=== PATIENT | female | born 1980 | race Caucasian/White ===

== ENCOUNTER 2018-07-01 07:48 | Inpatient (IN) | payer BC ==
[~2018-07-01] VITALS: Ht 162.6 cm; Wt 71.2 kg
--- NOTE | ~2018-07-01 | PROC ---
[address] [address] PROCEDURE REPORT Name: ALCON LOPEZ Room: [address] IN M.R.#: [id number] Admission: 07/01/18 Attend Phys: Ezio Rocha Discharge: Date of : 82 Report #: [id number] THIS REPORT FOR: //name// For GI report, please see the Provation report in Perceptive 7. By: 1450Medical Records Staff [facility]
[~2018-07-01 07:48] MED LIST: CELEXA10 MG PO; CLARITIN D PO; DIFLUCAN200 MG PO; HYDROCODONE-AP1 EAC6 PO; MACROBID 100 M100 M2 PO
[2018-07-01 08:00] VITALS: BP 105/69
[2018-07-01] MEDS ORDERED: OXYBUTYNIN 5 MG5 M2 PO (08:18)
[2018-07-01] MEDS ORDERED: ELMIRON 100 MG100 M1 PO (08:18)
[2018-07-01 08:36] LABS: ABSOLUTE EOSINOPHILS 0.1 thou/uL (0.0-0.7); ABSOLUTE LYMPHOCYTES 1.2 thou/uL (0.8-5.3); ABSOLUTE MONOCYTES 0.3 thou/uL (0.0-1.2); ABSOLUTE NEUTROPHILS 2.6 thou/uL (1.6-8.1); BASOPHILS 0.8 %; EOSINOPHILS 1.8 %; HEMATOCRIT 35.5 % (37.0-47.0); HEMOGLOBIN 12.2 gm/dL (12.0-15.0); LYMPHOCYTES 27.8 %; MCH 29.2 pg (26.0-34.0); MCHC 34.3 g/dL (28.0-37.0); MCV 84.9 fL (80.0-100.0); MONOCYTES 7.8 %; MPV 8.6 fl. (7.2-11.1); NUCLEATED RBCS 0 /100WBC; PLATELET COUNT* 184 thou/uL (150-400); POLYS 61.8 %; RBC 4.19 mil/uL (4.20-5.00); RDW-CV 13.7 % (10.5-14.5); WBC 4.2 thou/uL (4.0-11.0)
[2018-07-01 08:52] LABS: ANION GAP 8 mmol/L (7-16); BUN 26 mg/dL (7-18); CALCIUM 8.9 mg/dL (8.5-10.1); CHLORIDE 102 mmol/L (98-107); CO2 28 mmol/L (21-32); CREATININE 0.9 mg/dL (0.6-1.3); GLUCOSE 95 mg/dL (70-99); POTASSIUM 3.7 mmol/L (3.5-5.1); SODIUM 138 mmol/L (136-145)
[2018-07-01 08:57] LABS: ALBUMIN 3.6 g/dL (3.4-5.0); ALKALINE PHOSPHATASE 54 U/L (46-116); LIPASE 134 U/L (73-393); SGOT 19 U/L (15-37); SGPT 21 U/L (30-65); TOTAL BILIRUBIN 0.3 mg/dL (<0.1-1.0); TROPONIN-I LEVEL <0.06 ng/mL (<0.06)
--- NOTE | 2018-07-01 09:42 | NUR ---
CT compleated patient returned to ED and conectected to moniter. IV fluids empty left disconected
[2018-07-01 10:24] LABS: URINE BILIRUBIN NEGATIVE (Negative); URINE BLOOD NEGATIVE (Negative); URINE CLARITY CLEAR; URINE COLOR YELLOW; URINE GLUCOSE-RANDOM NEGATIVE (Negative); URINE KETONES NEGATIVE (Negative); URINE LEUKOCYTES-REFLEX NEGATIVE (Negative); URINE NITRITE-REFLEX NEGATIVE (Negative); URINE PROTEIN NEGATIVE (Negative); URINE UROBILINOGEN 0.2 E.U./dl (0.2-1.0)
[2018-07-01 12:12] VITALS: BP 88/47
[2018-07-01 12:20] VITALS: BP 90/58
--- NOTE | 2018-07-01 13:06 | NUR ---
RECEIVED REPORT FORM AMPARO IN ED AND ASSUMED CARE OF PT @ 2754.PT IS A/O X4,BP LOW @ 90/58.ASSESSMENT CHARTED.IV PATENT WITH IVF INFUSING PER ORDERS.PT IS CALM AND COOPERATIVE WITH NO C/O PAIN AT TIME OF ASSESSMENT.NPO STATUS FOR GI CONSULT.PT IS UP WITH SBA TO BATHROOM FOR DIZZINESS.PT LEFT RESTING IN BED WITH CALL LIGHT AND FALL PRECAUTIONS IN PLACE.FAMILY AT BEDSIDE.WILL CONTINUE TO MONITOR.
[2018-07-01 16:00] VITALS: BP 90/57
--- NOTE | 2018-07-01 17:34 | EKG ---
[place] [address] ELECTROCARDIOGRAM REPORT Name: ALCON LOPEZ Room: [address] ADM IN M.R.#: [id number] Admission: 07/01/18 Attend Phys: Ezio Rocha Discharge: Date of : 82 Report #: [id number] THIS REPORT FOR: //name// [facility] ED Test Date: 2018-07-01 Test Time: 08:31:06 Pat Name: ALCON LOPEZ Department: Room: [facility] Gender: F Ergonomics Technician: Ezio DAVIS : 1980 Requested By: Pierre Cleaning Order Number: [id number] MD: Buzz Rutledge Measurements Intervals [place] Rate: 71 P: 30 [place]: 131 QRS: 29 QRSD: 85 T: 41 QT: 413 QTc: 449 Interpretive Statements Sinus rhythm artifact noted No previous ECG available for comparison Electronically Signed On 07-01-2018 17:34:02 STATE APPELLATE CLERK by Buzz Rutledge [email or web address] <ELECTRONICALLY SIGNED> By: Buzz Rutledge MD, [facility] 07/01/18 1734 0831 0 Buzz Rutledge MD, FACC /EPI
[2018-07-01 17:57] LABS: ABSOLUTE LYMPHOCYTES 0.9 thou/uL (0.8-5.3); ABSOLUTE MONOCYTES 0.2 thou/uL (0.0-1.2); ABSOLUTE NEUTROPHILS 1.3 thou/uL (1.6-8.1); BASOPHILS 0.6 %; EOSINOPHILS 0.6 %; HEMATOCRIT 26.5 % (37.0-47.0); MCHC 33.9 g/dL (28.0-37.0); MCV 85.5 fL (80.0-100.0); MONOCYTES 7.7 %; MPV 8.1 fl. (7.2-11.1); NUCLEATED RBCS 0 /100WBC; PLATELET COUNT* 141 thou/uL (150-400); POLYS 53.1 %; RBC 3.09 mil/uL (4.20-5.00); RDW-CV 13.6 % (10.5-14.5); WBC 2.4 thou/uL (4.0-11.0)
--- NOTE | 2018-07-01 18:34 | NUR ---
VSS.CARDIAC MONITORING IN PLACE WITH NO CHANGES.PT REMAINS ON ROOM AIR.NO C/O PAIN.NO C/O N/V.IVF INFUSING PER ORDERS.PT TO BE NPO @ MIDNIGHT FOR EGD IN AM.PT INFORMED OF PLAN OF CARE AND COMMUNICATES UNDERSTANDING.CONSENT ON CHART BUT NOT SIGNED.PT IS UP WITH SBA TO BATHROOM.HOURLY ROUNDING COMPLETED FOR PT SAFETY.CALL LIGHT AND FALL PRECAUTIONS IN PLACE.WILL CONTINUE TO MONITOR FOR DURATION OF SHIFT.
[2018-07-01 20:00] VITALS: BP 89/56
[2018-07-02] VITALS: BP 92/56
--- NOTE | 2018-07-02 02:00 | NUR ---
PATIENT RESTED IN BED. DOCTOR NOTIFIED OF LOW BLOOD PRESSURE, SEE ORDERS. DOCTOR NOTIFIED OF PAIN, SEE ORDERS. PATIENT IS NOT SHOWING SIGNS OF DISTRESS. FALL PRECAUTIONS IN PLACE, CALL LIGHT WITH IN REACH, HOURLY ROUNDING OBSERVED. PATIENT STILL HAVE QUESTIONS REGARDING EGD.
[2018-07-02 02:14] LABS: ABSOLUTE EOSINOPHILS 0.1 thou/uL (0.0-0.7); ABSOLUTE LYMPHOCYTES 1.2 thou/uL (0.8-5.3); ABSOLUTE MONOCYTES 0.3 thou/uL (0.0-1.2); ABSOLUTE NEUTROPHILS 0.8 thou/uL (1.6-8.1); EOSINOPHILS 4.4 %; HEMATOCRIT 23.9 % (37.0-47.0); HEMOGLOBIN 8.2 gm/dL (12.0-15.0); LYMPHOCYTES 50.6 %; MCH 29.1 pg (26.0-34.0); MCHC 34.1 g/dL (28.0-37.0); MCV 85.5 fL (80.0-100.0); MONOCYTES 13.3 %; MPV 8.4 fl. (7.2-11.1); NUCLEATED RBCS 0 /100WBC; PLATELET COUNT* 132 thou/uL (150-400); POLYS 30.7 %; RDW-CV 13.8 % (10.5-14.5); WBC 2.5 thou/uL (4.0-11.0)
[2018-07-02 02:28] LABS: CALCIUM 8.3 mg/dL (8.5-10.1); CREATININE 0.7 mg/dL (0.6-1.3); MAGNESIUM 1.7 mg/dL (1.8-2.4); POTASSIUM 3.9 mmol/L (3.5-5.1)
[2018-07-02 04:00] VITALS: BP 90/48
[2018-07-02 08:00] VITALS: BP 93/54
[2018-07-02 09:00] VITALS: BP 93/54
--- NOTE | 2018-07-02 11:43 | NUR ---
ASSUMED CARE OF PT AT 0730. PT RESTING IN BED. AT BEDSIDE. PT A&0X4, COMPLAINS OF GENERALIZED DISCOMFORT ALL OVER BODY FROM FALL YESTERDAY AT HOME. 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 ON RA SAT UPPER 90'S. DENIES ANY SHORTNESS OF BREATH. IVF. PT UP SBA TO BATHROOM. PT NPO FOR EGD THIS AM. CONSENT SIGNED AND PLACED IN FRONT OF CHART. PT DENIES ANY BLOODYSTOOL OR EMESIS. PT TO HAVE US CAROTIDS AND ECHO TODAY. PT GOAL FOR TODAY IS EGD, MONITOR H/H AND PAIN MGMT. AM ASSESSMENT CHARTED. MEDICATIONS PER SEP. PT REPOSITIONS SELF. HOURLY ROUNDING OBSERVED. BED IN LOW POSITION. CALL LIGHT WITHIN REACH. WILL CONTINUE PLAN OF CARE.
--- NOTE | 2018-07-02 12:00 | NUR ---
PT OFF UNIT, WILL TRY TO SEE LATER
--- NOTE | 2018-07-02 15:40 | 2DMMODE ---
[place] [address] 2 D/M-MODE ECHOCARDIOGRAM Name: ALCON LOPEZ Room: [address] ADM IN [facility]#: [id number] Admission: 07/01/18 Attend Phys: Sagar Fuentes Discharge: Date of : 82 Date of Service: 07/02/18 1540 Report #: [id number] THIS REPORT FOR: //name// APPROVED REPORT Study performed: 07/02/2018 14:10:57 EXAM: Comprehensive 2D, Doppler, and color-flow Echocardiogram Patient Location: In-Patient Room #: [facility] Status: routine BSA: 1.66 HR: 71 bpm BP: 93/54 mmHg Rhythm: NSR Other Information Study Quality: Good Indications Syncope 2D Dimensions IVSd: 7.94 (7-11mm) LVOT Diam: 19.49 (18-24mm) LVDd: 42.10 mm PWd: 8.04 (7-11mm) Ascending Ao: 27.09 (22-36mm) LVDs: 26.66 (25-40mm) Aortic Root: 25.50 mm Volumes Left Atrial Volume (Systole) LA ESV Index: 29.60 mL/m2 Aortic Valve AoV Peak [place].: 1.14 m/s AO Peak Gr.: 5.22 mmHg LVOT Max P.71 mmHg AO Mean Gr.: 3.01 mmHg LVOT Mean P.07 mmHg LVOT Max V: 1.08 m/s AO V2 VTI: 23.43 cm LVOT Mean V: 0.65 m/s FANTA (VTI): 2.95 cm2 LVOT V1 VTI: 23.21 cm Mitral Valve E/A Ratio: 2.04 MV Decel. Time: 250.70 ms MV E Max Clifton.: 0.83 m/[place] [address] 2 D/M-MODE ECHOCARDIOGRAM Name: ALCON LOPEZ Room: [address] IN [facility].#: [id number] Admission: 07/01/18 Attend Phys: Sagar Fuentes Discharge: Date of : 82 Date of Service: 07/02/18 1540 Report #: [id number] MV PHT: 72.70 ms MVA (PHT): 3.03 cm2 TDI E/Lateral E': 3.95 E/Medial E': 5.93 Medial E' Clifton.: 0.14 m/s Lateral E' Clifton.: 0.21 m/s Pulmonary Valve PV Peak Clifton.: 0.89 m/s PV Peak Gr.: 3.14 mmHg Left Ventricle The left ventricle is normal size. There is normal LV segmental wall motion. There is normal left ventricular wall thickness. Left ventricular systolic function is normal. The left ventricular ejection fraction is within the normal range. LVEF is 65-70%. The left ventricular diastolic function is normal. Right Ventricle The right ventricle is normal size. The right ventricular systolic function is normal. Atria The left atrium size is normal. The right atrium size is normal. Aortic Valve The aortic valve is normal in structure. No aortic regurgitation is present. There is no aortic valvular stenosis. Mitral Valve The mitral valve is normal in structure. There is no mitral valve regurgitation noted. No evidence of mitral valve stenosis. Tricuspid Valve The tricuspid valve is normal in structure. Unable to assess PA pressure. Trace tricuspid regurgitation. Pulmonic Valve The pulmonary valve is normal in structure. Trace pulmonic regurgitation. Great Vessels The aortic root is normal in size. IVC is normal in size and collapses >50% [place] [address] 2 D/M-MODE ECHOCARDIOGRAM Name: ALCON LOPEZ Room: [address] IN [facility]#: [id number] Admission: 07/01/18 Attend Phys: Sagar Fuentes Discharge: Date of : 82 Date of Service: 07/02/18 1540 Report #: [id number] Pericardium There is no pericardial effusion. <Conclusion> LVEF is 65-70%. There is normal LV segmental wall motion. There is no aortic valvular stenosis. No aortic regurgitation is present. No evidence of mitral valve stenosis. There is no mitral valve regurgitation noted. <ELECTRONICALLY SIGNED> By: Andrez Alonso MD, FACC 07/02/18 1540 1540 1540 Andrez Alonso MD, FACC /INF
[2018-07-02 16:00] VITALS: BP 98/60
--- NOTE | 2018-07-02 17:05 | NUR ---
NO ACUTE CHANGES THROUGHOUT SHIFT. REFER TO CHARTING. PT HAD EGD TODAY- REFER TO PROCEDURE NOTES. PT TOLERATING REGULAR DIET. PLAN FOR OUTPT CAPSULE STUDY AND COLONOSCOPY. PT DENIES ANY BLOODY STOOLS OR EMESIS. AT BEDSIDE THROUGHOUT SHIFT. PT DENIES ANY PAIN OR SHORTNESS OF BREATH THROUGHOUT SHIFT. PROBABLE DISCHARGE HOME TOMORROW. MEDICATIONS PER MAR. PT REPOSITIONS SELF. HOURLY ROUNDING OBSERVED. BED IN LOW POSITION. CALL LIGHT WITHIN REACH. WILL CONTINUE PLAN OF CARE.
[2018-07-02 20:00] VITALS: BP 90/53
[2018-07-03] VITALS (7 sets, daily range): BP systolic 90–116; BP diastolic 32–70
[2018-07-03 04:51] LABS: ABSOLUTE EOSINOPHILS 0.1 thou/uL (0.0-0.7); ABSOLUTE LYMPHOCYTES 1.1 thou/uL (0.8-5.3); ABSOLUTE MONOCYTES 0.3 thou/uL (0.0-1.2); ABSOLUTE NEUTROPHILS 1.1 thou/uL (1.6-8.1); BASOPHILS 0.7 %; EOSINOPHILS 4.6 %; HEMATOCRIT 23.8 % (37.0-47.0); HEMOGLOBIN 8.2 gm/dL (12.0-15.0); LYMPHOCYTES 42.9 %; MCH 29.3 pg (26.0-34.0); MCHC 34.5 g/dL (28.0-37.0); MONOCYTES 10.6 %; MPV 8.3 fl. (7.2-11.1); NUCLEATED RBCS 0 /100WBC; PLATELET COUNT* 114 thou/uL (150-400); POLYS 41.2 %; RDW-CV 13.3 % (10.5-14.5); WBC 2.6 thou/uL (4.0-11.0)
[2018-07-03 05:31] LABS: CALCIUM 8.1 mg/dL (8.5-10.1); CREATININE 0.8 mg/dL (0.6-1.3); POTASSIUM 3.5 mmol/L (3.5-5.1)
--- NOTE | 2018-07-03 07:43 | NUR ---
PATIENT RESTED IN BED, NO ACUTE CHANGES. PATIENT DID NOT SHOW SIGNS OF DISTRESS. FALL PRECAUTIONS IN PLACE, CALL LIGHT WITH IN REACH, HOURLY ROUNDING OBSERVED, BED ALARM ON.
--- NOTE | 2018-07-03 10:41 | NUR ---
ATTEMPTED TO MEET [facility] PT, SHE WAS OUT OF ROOM. SPOUSE IN ROOM. PT LIVES WITH SPOUSE AND CHILDREN, IS INDEPENDENT. UP AND ABOUT IN ROOM. PER NURSING, PT WANTING TO TALK WITH WILL FOLLOW
--- NOTE | 2018-07-03 13:39 | NUR ---
ASSUMED PT CARE AT 0700 PT IS ALERT AND ORIENTED X 4 PT DENIES PAIN OR SOA ON RA, PT IS UP WITH SBA PT IS A FALL RISK BED ALARM IS ON, PT IS CONCERNED WITH TEST RESULTS AND TREATMENT PLAN THIS NURSE PAGED HOSPITALIST WITH PT CONCERNS HOSPITALIST UNABLE TO SEE PT IMMEDIATELY IS ROUNDING WHICH THIS NURSE INFORMED PT OF, PT IS SR ON THE MONITOR PT HAS HAD NO EPISODES OF NAUSEA OR EMESIS, HOSPITALIST SAW PT AND HAS EDUCATED PT ON TREATMENT PLAN, WILL CONTINUE TO MONITOR
[2018-07-04] VITALS: BP 105/38
[2018-07-04 04:00] VITALS: BP 100/54
[2018-07-04 05:00] LABS: ABSOLUTE EOSINOPHILS 0.1 thou/uL (0.0-0.7); ABSOLUTE MONOCYTES 0.2 thou/uL (0.0-1.2); BASOPHILS 0.6 %; EOSINOPHILS 6.1 %; HEMATOCRIT 25.2 % (37.0-47.0); HEMOGLOBIN 8.6 gm/dL (12.0-15.0); LYMPHOCYTES 40.8 %; MCHC 34.1 g/dL (28.0-37.0); MONOCYTES 8.9 %; MPV 8.3 fl. (7.2-11.1); NUCLEATED RBCS 0 /100WBC; PLATELET COUNT* 122 thou/uL (150-400); POLYS 43.6 %; RBC 2.96 mil/uL (4.20-5.00); RDW-CV 13.5 % (10.5-14.5); WBC 2.4 thou/uL (4.0-11.0)
[2018-07-04 05:13] LABS: CALCIUM 8.1 mg/dL (8.5-10.1); CREATININE 0.7 mg/dL (0.6-1.3); POTASSIUM 3.2 mmol/L (3.5-5.1)
[2018-07-04 09:00] VITALS: BP 112/61
--- NOTE | 2018-07-04 11:00 | NUR ---
CONTINUE TO FOLLOW, MET WITH PT. SHE HOPES TO GO HOME TODAY. CONFIRMS SHE LIVES WITH SPOUSE AND CHILDREN AND IS INDEPENDENT. DENIES DC NEEDS. HAS SUPPORTIVE FAMILY
[2018-07-04 11:37] VITALS: BP 102/62
[2018-07-04] MEDS ORDERED: COLACE 100 MG100 MG PO (12:05)
[2018-07-04] MEDS ORDERED: FOLIC ACID1 MG PO (12:06)
[2018-07-04] MEDS ORDERED: THERA M PLUS T1 EAC2 PO (12:06)
[2018-07-04] MEDS ORDERED: VITAMIN B-121000 MC3 PO (12:08)
--- NOTE | 2018-07-04 12:51 | NUR ---
ASSUMED PT CARE AT 0700 PT IS ALERT AND ORIENTED X 4 PT DENIES PAIN OR SOA ON RA, PT IS UP WITH SBA PT IS A FALL RISK BED ALARM IS ON, PT IS SR ON THE MONITOR, PT DENIES DIZZINESS OR LIGHTHEADNESS, PT IS PROGRESSING TOWARDS GOALS, HEMOCOLOGY SAW PT PLACED ORDERS, PT MAY DISCHARGE IF CLEARED BY GI, WILL CONTINUE TO MONITOR
[2018-07-04 15:05] VITALS: BP 102/62
[2018-07-04 23:08] LABS: HEPATITIS B SURFACE AG Negative (Negative)
--- NOTE | 2018-07-05 14:28 | CON ---
[address] [address] CONSULTATION Name: ALCON LOPEZ Room: [address] IN .R.#: [id number] Admission: 07/01/18 Attend Phys: Ezio Rocha Discharge: 07/04/18 Date of : 82 Report #: [id number] THIS REPORT FOR: //name// CC: Estela Fuentes DATE OF SERVICE: 07/04/2018 REASON FOR CONSULTATION: Pancytopenia. HISTORY OF PRESENT ILLNESS: A 38-year-old female who was admitted because of upper GI bleed after she had syncopal episodes. She was found to have coffee-ground emesis. She had lightheadedness. However, she denies any abdominal pain. The patient, when she was evaluated at the hospital, her hemoglobin was 12.2; however, it started dropping after IV fluids and today, it is 8.6. Same thing for her WBC count, which was normal at 4.2 when she was admitted and platelet count 184,000. The patient stated that she had no restricted diet or she is not vegetarian. Her workup revealed that she has a B12 deficiency and folic deficiency. REVIEW OF SYSTEMS: All systems were reviewed. It was negative, except the above. PAST MEDICAL HISTORY: Interstitial cystitis, IBS and anxiety disorder. MEDICATIONS: Per admission list. ALLERGIES: No known allergies. SOCIAL HISTORY: She is an active smoker. She does not drink alcohol. FAMILY HISTORY: VTE in the family. PHYSICAL EXAMINATION: VITAL SIGNS: Today, temperature 36.6, pulse 66, respirations 15, blood pressure was 100/54 and SpO2 was 99% on room air. GENERAL: The patient was sitting in the chair, was not in acute distress. LUNGS: Clear to auscultations bilaterally. ABDOMEN: Soft, nontender and nondistended. Bowel sounds positive. EXTREMITIES: No edema, no cyanosis and no clubbing. IMAGING DATA: CT scan was negative for PE. Carotid Doppler also came back negative. Head CT scan came back negative. CT of the abdomen showed no acute process identified. ASSESSMENT AND PLAN: A 38-year-old female [place] [address] CONSULTATION Name: ALCON LOPEZ Room: [address]#: [id number] Admission: 07/01/18 Attend Phys: Ezio Rocha Discharge: 07/04/18 Date of : 82 Report #: [id number] because of upper GI bleed. A workup including EGD is unrevealing. She is scheduled for capsule endoscopy. Upon admission, she had a normal CBC. However, after IV fluids, she became pancytopenic. Her hemoglobin, however, is stabilized now at 8.6. Her workup revealed that she has low B12 and low folate serum level. At this point, I agree with replacing her B12 and folate and waiting for her ferritin level. I think the etiology of her pancytopenia is multifactorial due to nutritional deficiencies and IV fluids delusional effect. I would like to repeat CBC as an outpatient once the patient is discharged. We will follow up at the clinic at [place] on Sunday morning with a repeated CBC. <ELECTRONICALLY SIGNED> By: Oscar Jones MD 07/05/18 1428 0854 [id number] Jones MD /nt
== END 2018-07-04 15:37 | disposition home or self-care (01) | DRG 378 ==
LOC: M.ERS 07:48 → M.2W 10:19 → M.TBA-ER 10:19 → M.2W 12:20
PROVIDERS: Emergency Medicine Emergency Medical Services; Family Medicine; Internal Medicine Pulmonary Disease; ADMIT Internal Medicine
PROC: 0DJ08ZZ Inspection of Upper Intestinal Tract, Via Natural or Artificial Opening Endoscopic (ICD-10-PCS; principal; 2018-07-02)
DX: K92.2 Gastrointestinal hemorrhage, unspecified (principal); D62 Acute posthemorrhagic anemia; D61.818 Other pancytopenia; I95.9 Hypotension, unspecified; F41.9 Anxiety disorder, unspecified; F17.220 Nicotine dependence, chewing tobacco, uncomplicated; F32.9 Major depressive disorder, single episode, unspecified; E53.8 Deficiency of other specified B group vitamins; E61.1 Iron deficiency; Z79.899 Other long term (current) drug therapy; Z83.2 Family history of diseases of the blood and blood-forming organs and certain disorders involving the immune mechanism

== ENCOUNTER 2019-07-30 12:23 | Emergency (ER) | payer BC ==
[~2019-07-30] VITALS: Ht 162.6 cm; Wt 73.5 kg
[~2019-07-30 12:23] MED LIST changes: +COLACE 100 MG100 MG PO; +ELMIRON 100 MG100 M1 PO; +FOLIC ACID1 MG PO; +OXYBUTYNIN 5 MG5 M2 PO; +THERA M PLUS T1 EAC2 PO; +VITAMIN B-121000 MC3 PO
[2019-07-30] MEDS ORDERED: NORCO 5-325 TA1 EAC1 PO (13:26)
[2019-07-30 14:13] VITALS: BP 114/67
== END 2019-07-30 14:16 | disposition home or self-care (01) ==
LOC: M.ERS 12:23
DX: S93.492A Sprain of other ligament of left ankle, initial encounter (principal); F17.220 Nicotine dependence, chewing tobacco, uncomplicated; Z88.5 Allergy status to narcotic agent; Z88.6 Allergy status to analgesic agent; W10.1XXA Fall (on)(from) sidewalk curb, initial encounter; Y93.89 Activity, other specified; Y92.89 Other specified places as the place of occurrence of the external cause; Y99.8 Other external cause status